=== PATIENT | male | born 1945 | race Caucasian/White ===

== ENCOUNTER 2024-03-06 06:05 | Day surgery (SDC) | payer OTHER ==
[2024-02-22 14:45] VITALS: BP 109/75
[2024-03-06] VITALS (8 sets, daily range): BP systolic 110–153; BP diastolic 57–84
[~2024-03-06] VITALS: Ht 182.9 cm; Wt 98.0 kg
[~2024-03-06 06:05] MED LIST: CEFAZOLIN SODIUM 2 GM/20 ML SYR IV SCH; CRESTOR40 MG NG; DUTASTERIDE0.5 MG PO; FAMOTIDINE20 MG PO; GABAPENTIN 600 MG TAB PO SCH; IBLOOD GLUCOSE TEST STRIP 1 EA TEST VI PRN; INTRA-ARTICULAR ANALGESIC INJECTION XX SCH; LACTATED RINGER'S 1,000 ML IV SCH; LIDOCAINE HCL 1% 5 ML SDV INJ ONE; LIPITOR40 MG PO; NITROGLYCERIN0.4 MG SL; OXYCODONE HCL 5 MG TAB PO SCH; PANTOPRAZOLE SODIUM 40 MG TABEC PO SCH; ROPIVACAINE IN 0.9% SOD CHL/PF 545 ML ELS.PMP.HR IRRIGATION SCH; Ropivacaine HCl 20 MG/10 ML AMP ONE; TRANEXAMIC ACID 2,000 MG in SODIUM CHLORIDE 0.9% 100 ML IV SCH; VENTOLIN HFA18 GM INH; VITAMIN D350 MCG PO; VOLTAREN ARTHRI20 GM TOP; XARELTO10 MG PO; ondansetron HCL 4 MG TAB PO SCH
[2024-03-06] MEDS ORDERED: CLOPIDOGREL75 MG PO (06:32)
[2024-03-06] MEDS ORDERED: ROPIVACAINE IN 0.9% SOD CHL/PF 545 ML ELS.PMP.HR IRRIGATION SCH (07:00)
[2024-03-06] MEDS ORDERED: IBLOOD GLUCOSE TEST STRIP 1 EA TEST VI PRN ×2 (07:00→08:45)
[2024-03-06] MEDS ORDERED: GABAPENTIN 600 MG TAB PO SCH (07:00)
[2024-03-06] MEDS ORDERED: ondansetron HCL 4 MG TAB PO SCH (07:00)
[2024-03-06] MEDS ORDERED: PANTOPRAZOLE SODIUM 40 MG TABEC PO SCH (07:00)
[2024-03-06] MEDS ORDERED: TRANEXAMIC ACID IN NACL,ISO-OS 1,000 MG/100 ML PIGGYBACK IV SCH ×2 (07:00→11:29)
[2024-03-06] MEDS ORDERED: CEFAZOLIN SODIUM 2 GM/20 ML SYR IV SCH ×2 (07:00→16:00)
[2024-03-06] MEDS ORDERED: LIDOCAINE HCL 1% 5 ML SDV INJ ONE (07:00)
[2024-03-06] MEDS ORDERED: INTRA-ARTICULAR ANALGESIC INJECTION XX SCH (07:00)
[2024-03-06] MEDS ORDERED: OXYCODONE HCL 5 MG TAB PO SCH (07:00)
[2024-03-06] MEDS ORDERED: DEXAMETHASONE SOD PHOS 4 MG/ML VIAL ONE ×2 (07:50→08:22)
[2024-03-06] MEDS ORDERED: dexmedeTOMIDine HCl 200 MCG/2 ML VIAL ONE (07:50)
[2024-03-06] MEDS ORDERED: propofoL 200 MG/20 ML VIAL ONE ×2 (07:50→08:22)
[2024-03-06] MEDS ORDERED: LIDOCAINE HCL 2% 5 ML SDV ONE (07:50)
[2024-03-06] MEDS ORDERED: Ropivacaine HCl 0.5% 30 ML VIAL ONE (07:51)
[2024-03-06] MEDS ORDERED: SODIUM CHLORIDE 0.9% 20 ML IV ONE ×2 (07:51→10:07)
[2024-03-06] MEDS ORDERED: KETOROLAC TROMETHAMINE 30 MG/ML VIAL IV PRN (08:30)
[2024-03-06] MEDS ORDERED: OXYCODONE HCL 5 MG TAB PO PRN (08:30)
[2024-03-06] MEDS ORDERED: fentaNYL citrate 50 MCG/ML SDV IV PRN (08:45)
[2024-03-06] MEDS ORDERED: NALOXONE HCL 0.4 MG SYR IV PRN (08:45)
[2024-03-06] MEDS ORDERED: ondansetron HCL 4 MG/2 ML VIAL IV PRN (08:45)
[2024-03-06] MEDS ORDERED: ePHEDrine sulfate 50 MG/ML AMP ONE (08:50)
--- NOTE | 2024-03-06 10:47 | NUR ---
03/06/24 1047 Concepción Zavala 1033 PT TO PACU SLEEPY BUT AROUSABLE DENIES PAIN AND NAUSEA.
--- NOTE | 2024-03-06 11:06 | NUR ---
Pt arrived to room via bed, transferred by PACU RNs. Pt report received from RN Eloisa Oh. Pt is resting supine in bed, cryo cuff on and plugged in. Pt is alert and oriented, denies any pain at this time. Dressing is without noted drainage. Pt sipping on powerade (he does not like plain water). Pt reports sensation to the mid thigh and can wiggle his toes. Oriented pt to room and call light, white board updated. Side rails up x4, call light in reach.
--- NOTE | 2024-03-06 12:01 | NUR ---
PT NOT AVAILABLE FOR VISIT. PROVIDED PRAYER.
[2024-03-06] MEDS ORDERED: ALBUTEROL SULFATE 0.083% 3 ML VIAL INH PRN (13:15)
--- NOTE | 2024-03-06 13:45 | OR ---
[facility] [address] [place], [place] [address] Signed DATE OF OPERATION: 03/06/2024 SURGEON: Tosha Zavala MD PREOPERATIVE DIAGNOSIS: Severe degenerative joint disease, right knee. POSTOPERATIVE DIAGNOSIS: Severe degenerative joint disease, right knee. PROCEDURE PERFORMED: Right total knee arthroplasty with Jeromy. ICING COATER: Bel Tello PA-C. Bel was present and critical for all portions of procedure. ANESTHESIA: Spinal. BLOOD LOSS: 163 mL. IMPLANTS: Ayla Triathlon size 6, 10 mm polyethylene, 35 mm patella. BRIEF HISTORY: Matteo is an 78-year-old gentleman with severe pain in his knee. He had undergone nonoperative treatment without substantial relief. Risks, benefits, and alternatives of surgery were discussed with him and he elected to proceed. DESCRIPTION OF OPERATION: Once consent was obtained, he was taken to the operating room. After adequate anesthesia, he was placed on the operating room table. All downside pressure points were well padded and a hip bump was placed. The right leg was prepped and draped in the standard sterile fashion. The knee was approached through a standard anterior midline incision and taken through the skin and subcutaneous tissue. Skin flaps were developed medially and laterally. A low midvastus arthrotomy was performed. The MCL was elevated as a sleeve around the posteromedial corner. The infrapatellar fat pad was excised. Anterior horns of meniscus were transected and the ACL was transected. The PCL was Electronically Signed By: TOSHA ZAVALA MD 03/06/24 1345 PATIENT NAME: IRISH MEDEIROS OPERATIVE REPORT DATE OF : 41 REPORT #: [id number] PHYSICIAN: TOSHA ZAVALA MD PCP: NO PRIMARY CARE PHYSICIAN REPORT IS CONFIDENTIAL AND NOT TO BE RELEASED WITHOUT AUTHORIZATION [facility] [address] [place], [place] [address] Signed found to be intact. The computer arrays were then placed in the medial femoral condyle and proximal tibia. The leg was then registered with the computer followed by the fine anatomic points of the knee. The varus and valgus testing was undertaken and slight adjustments were made to the components. The robot was then brought in. The 4 straight cuts and 2 angle cuts were made with care taken to protect the patellar tendon and MCL. The bony remnants were removed as were any remaining osteophytes. The posterior osteophytes were removed off the femur, but no release was performed. The meniscal remnants were removed. Trials were then positioned. Knee was taken from 0 to 130 degrees with excellent stability throughout. The patella tracked well. The patella was then cut sized and drilled for a 35 mm patella. Again, the patella tracked well. The distal femoral drill holes were completed and the proximal tibia was finished with keel punch and drill holes. The prosthesis was then obtained and the tibia was impacted until it was seated flush. The polyethylene was snapped into position and the femur was impacted. The knee was extended and loaded. The patella was clamped into position the bone was quite soft and it did not sit stably. We then switched to a cemented patella and mixed the cement and placed it on the bone and the patellar component. It was then held in position until the cement had set. All excess cement was removed. The knee was then taken through range of motion and found again to be stable and well tracked patella. The periarticular soft tissue was injected with 80 mL of ropivacaine and Toradol mixture. The On-Q pain pump was percutaneously placed into the adductor canal from the suprapatellar pouch. The knee was irrigated with one bottle of Surgiphor followed by normal saline. The arthrotomy was then closed using a combination of #2 FiberWire and #2 Stratafix, subcutaneous tissue with 0 Stratafix and the skin with virgil. The wound was dressed with Acticoat-7 dressing, ABD, and Cristopher wrap. He tolerated the procedure well. All sponge, needle, and instrument counts correct. Tosha Zavala MD BA/MODL /[id number] Electronically Signed By: TOSHA ZAVALA MD 03/06/24 1345 PATIENT NAME: IRISH MEDEIROS OPERATIVE REPORT DATE OF : 41 REPORT #: [id number] PHYSICIAN: TOSHA ZAVALA MD PCP: NO PRIMARY CARE PHYSICIAN REPORT IS CONFIDENTIAL AND NOT TO BE RELEASED WITHOUT AUTHORIZATION [facility] [address] [place] [id number] Signed Copies: ~ Electronically Signed By: TOSHA ZAVALA MD 03/06/24 1345 PATIENT NAME: JESS MEDEIROSIFFORD CHRIS MARIEN OPERATIVE REPORT DATE OF : 41 REPORT #: [id number] PHYSICIAN: TOSHA ZAVALA MD PCP: NO PRIMARY CARE PHYSICIAN REPORT IS CONFIDENTIAL AND NOT TO BE RELEASED WITHOUT AUTHORIZATION
--- NOTE | 2024-03-06 13:52 | NUR ---
In with pt for hourly post-op assessment. Pt has sensation to his feet, is able to wiggle his toes and pt advised (and showed) this Rn that he can lift his right leg pretty high off the bed. Pt now states he is having discomfort in his right hip. Encouraged pt to take it easy until the physical therapist comes to help him. Pt requested a urinal at this time and states he would like to attempt to urinate. Cryo cuff on, demetrio hose on, foot pumps on, rolls under heels, warm blanket provided, hob lowered slightly, side rails up x4, call light in reach.
--- NOTE | 2024-03-06 14:30 | NUR ---
Spoke with pt and his DILLacey. Pt lives alone in [place] in a trailer. There is snow there. Pt uses a 4WW walker. He does not want to get a 2WW. He plans on going home with son and DIL for transport. They will not be staying with pt and live an hour away. Pt states he planned well for this admission and has years of freezer meals. Once home, he will just stay there. Pt will have HH PT. He denies any needs. Pt is grimacing at times and does c/o pain. Nurse to room and will medicate pt.Pt denies financial issues.
[2024-03-06] MEDS ORDERED: CLOPIDOGREL BISULFATE 75 MG TAB PO SCH (15:00)
[2024-03-06] MEDS ORDERED: GABAPENTIN 300 MG CAP PO SCH (15:00)
[2024-03-06] MEDS ORDERED: ACETAMINOPHEN 500 MG TAB PO SCH (15:00)
[2024-03-06] MEDS ORDERED: Rivaroxaban 10 MG TAB PO SCH (15:00)
--- NOTE | 2024-03-06 17:50 | NUR ---
medications reconciled using pharmacy records and patient interview
--- NOTE | 2024-03-06 18:57 | NUR ---
After pt was bladder scanned for >556 ml, 2-person assist pt using FWW and WBAT to RL, pt up to toilet to sit to void. Pt states that it normally takes him a long time to void and when he does, he sits there longer because he'll void more when he does. He sat on the toilet for about 10 minutes and used the call light, voided about 200ml in toilet, PVR of >356. Pt back to bed to eat dinner. Will assist him to the toilet after dinner and bladder scan for PVR
--- NOTE | 2024-03-06 20:10 | NUR ---
REPORT RECEIVED FROM ROVERTO PRADHAN. pt RESTING IN THE BED. BOARD UPDATED. CRYO CUFF ON. SCDS ON. CALL LIGHT WITHIN REACH. NO OTHER NEEDS AT THIS TIME.
[2024-03-06] MEDS ORDERED: FINASTERIDE 5 MG TAB PO SCH (21:00)
[2024-03-06] MEDS ORDERED: FAMOTIDINE 20 MG TAB PO SCH (21:00)
[2024-03-06] MEDS ORDERED: SENNOSIDES 1 TAB PO SCH (21:00)
[2024-03-06] MEDS ORDERED: ATORVASTATIN 40 MG TAB PO SCH (21:00)
--- NOTE | 2024-03-06 22:00 | NUR ---
PATIENT VOIDED 200ML SLIGHTLY DARK YELLOW URINE ON THE HAT. BLADDER SCAN DONE AND SHOWED 306ML. PRIMARY RN IS AWARE. PATIENT IS BACK IN BED. FOOT SCD'S AND CRYO CUFF ARE BACK ON.
--- NOTE | 2024-03-06 22:30 | NUR ---
ASSESSMENT AND VITAL SIGNS DONE. pt UP TO THE BR. 1PA WITH FWW. DRESSING CDI. CRYO CUFF FILLED WITH ICE. pt BACK TO BED. CRYO CUFF ON. SCD'S ON. SCHEDULED MEDS ADMINISTERED. pt DENIES ANY OTHER NEEDS AT THIS TIME. pt PEED 200 ML. POST RESIDUAL VOID SCAN OF 306 ML. CALL LIGHT WITHIN. IV ASSESSED, WNL.
[2024-03-07] VITALS (11 sets, daily range): BP systolic 111–132; BP diastolic 68–88
--- NOTE | 2024-03-07 00:20 | NUR ---
pt RESTING IN THE BED. SCHEDULED MEDICATION ADMINISTERED. pt DENIES ANY OTHER NEEDS AT THIS TIME. CALL LIGHT WITHIN REACH.
--- NOTE | 2024-03-07 07:39 | NUR ---
RECEIEVED MORNING REPORT FROM TECHNICAL ANALYST RN. PT LAYING IN BED WITH EYES CLOSED CHEST RISE EQUAL BILAT. PT HAS CALL LIGHT WITHIN REACH.
[2024-03-07] MEDS ORDERED: Rivaroxaban 10 MG TAB PO SCH (08:00)
[2024-03-07] MEDS ORDERED: DICLOFENAC SOD 75 MG TABEC PO SCH (08:00)
--- NOTE | 2024-03-07 08:30 | NUR ---
PT SITTING UP RIGHT IN BED WATCHING TV PT EXPRESSES NO CURRENT NEEDS AT THIS TIME. PT CRYO CUFF, SCD'S in place with call light in reach.
[2024-03-07] MEDS ORDERED: CLOPIDOGREL BISULFATE 75 MG TAB PO SCH (09:00)
[2024-03-07] MEDS ORDERED: cefuroxime axetiL 250 MG TAB PO SCH (09:00)
--- NOTE | 2024-03-07 09:40 | NUR ---
PT SITTING UPRIGHT IN BED. PT STATES "THAT HE IS IN NO PAIN" PT HAS NO CURRENT NEEDS AT THIS TIME. CALL LIGHT WITH IN REACH.
--- NOTE | 2024-03-07 10:38 | NUR ---
PT SITTING UPRIGHT IN BED PT STATES "HE HAS NO CURRENT PAIN AND HE FEELS WELL ENOUGH TO GO HOME" PT WAS ALSO ABOUT TO WORK WITH PHYSICAL THERAPY TO DETERMINE STATUS OF MOBILITY. PT HAS NO CONCERNS AT THIS TIME CALL LIGHT WITHIN REACH.
--- NOTE | 2024-03-07 10:40 | NUR ---
Spoke with pt. he is walking in the grimm. He denies needs. I spoke with Dr. Zavala earlier this am and he would like pt to remain another day due to safety concerns.
--- NOTE | 2024-03-07 11:16 | NUR ---
UR CLINICAL REVIEW: [facility] [place] ENCOUNTER INACTIVE. [facility] EXTENDED STAY 03/06/24 @ 1115 ORDER [facility] FAXED TO [place] FOR REVIEW DISCHARGE TO HOME WHEN STABLE 03/09/24
--- NOTE | 2024-03-07 11:45 | NUR ---
PT STATED " HE DOES FEEL SOME SLIGHT PAIN WHEN AMBULATING BUT REFUSES TO TAKE ORAL PAIN MEDICATIONS" PT SAYS EXPRESSES NO OTHER NEEDS AT THIS TIME. CALL LIGHT WITHIN REACH.
--- NOTE | 2024-03-07 12:56 | NUR ---
PT AMBULATED TO RESTROOM WITH HELP FROM FOUNDER AND CEO. PT TOLERATED WELL USING FWW AND 1 PERSON ASSIST. PT CURRENTLY LAYING IN BED WITH CRYO CUFF ATTACHED AND SCD'S ON. PT EXPRESSES NO NEEDS AT THIS TIME CALL LIGHT WITHIN REACH.
--- NOTE | 2024-03-07 13:16 | NUR ---
DR ALONZO CALLED TO CLARIFY ON Q PUMP SETTING. DR ALONZO CONFIRMED THAT HE WANTS THE ON Q SET AT 4 ML/HR IT IS CURRENTLY RUNNING.
--- NOTE | 2024-03-07 13:51 | NUR ---
PT NOT AVAILABLE FOR VISIT. PROVIDED PRAYER.
--- NOTE | 2024-03-07 14:12 | NUR ---
PT SITTING IN BED WITH CRYO CUFF APPLIED AND SCD'S PLACED. PT EXPRESSES NO PAIN AT THIS TIME AND NO OTHER CONCERNS. PT CALLL LIGHT WITHIN REACH.
--- NOTE | 2024-03-07 16:21 | NUR ---
PT RESTING IN BED READING HIS BOOOK. MEDS GIVEN (CONSULTED WITH [facility] PHARMACIST REGARDING TIMING OF BLOOD THINNNING MEDICATIONS) NO REQUESTS AT THIS TIME. CALL LIGHT WITHIN REACH.
--- NOTE | 2024-03-07 16:40 | NUR ---
PT SITTING IN BED WITH EYES CLOSED. PT CHEST RISE EQIAL BILAT PT EXPRESSES NO NEEDS AT THIS TIME. CALL LIGHT WITHIN REACH.
--- NOTE | 2024-03-07 17:50 | NUR ---
PT ASSISTED INTO THE REST ROOM VIA 1PA FWW. PT USES CALL LIGHT APPROPRIATLY. PT CRYOCUFF BOX FILLED WITH ICE. PT SHAVED AND BRUSHED TEETH PT ASSISTED BACK INTO BED AND IS EATING DINNER SITTING UPRIGHT IN BED. PT HAS NO CONCERNS AT THIS TIME CALL LIGHT WITHIN REACH.
--- NOTE | 2024-03-07 18:45 | NUR ---
PT SITTING IN BED WATCHING TV PT EXPRESSES NO NEEDS AT THIS TIME CRYOCUFF ON STILL WITH ICE IN BOX. PT HAS CALL LIGHT WITH IN REACH
--- NOTE | 2024-03-07 19:38 | NUR ---
REPORT RECEIVED FROM BARBARA PRADHAN. pt RESTING IN THE BED. BOARD UPDATED. pt DENIES ANY OTHER NEEDS AT THIS TIME. CALL LIGHT WITHIN REACH.
--- NOTE | 2024-03-07 21:40 | NUR ---
ASSESSMENT AND VITAL SIGNS DONE. DRESSING CDI. SCDS ON. CRYO CUFF FILLED WITH ICE. SCHEDULED MEDS ADMINISTERED. pt DENIES ANY OTHER NEEDS AT THIS TIME. CALL LIGHT WITHIN REACH.
--- NOTE | 2024-03-08 00:05 | NUR ---
pt CALLED TO USE THE BR. SBA WITH FWW TO THE BR. pt BACK TO BED. CRYO FILLED WITH ICE. SCDS ON. pt DENIES ANY OTHER NEEDS AT THIS TIME. CALL LIGHT WITHIN REACH.
--- NOTE | 2024-03-08 02:21 | NUR ---
pt RESTING IN THE BED WITH EYES CLOSED. RR EVEN AND UNLABORED. CALL LIGHT WITHIN REACH.
[2024-03-08 04:18] VITALS: BP 126/70
--- NOTE | 2024-03-08 06:35 | NUR ---
pt C/O 08/29 PAIN. PRN PAIN MEDS ADMINISTERED. pt DENIES ANY OTHER NEEDS AT THIS TIME. CALL LIGHT WITHIN REACH.
--- NOTE | 2024-03-08 07:27 | NUR ---
ROSEANNA REPORT RECIEVED FROM CAROLYNN GONZALEZ. RN REPORTED PT EXPERIENCED SOME PAIN EARLY THIS MORNING AROUND 0630 AND WAS GIVEN PRN OXY (SEE EMAR) PT CURRENTLY SHOWING NO SIGNS OF DISCOMFORT. PT HAS NO CURRENT NEEDS AT THIS TIME CALL LIGHT WITHIN REACH.
--- NOTE | 2024-03-08 08:15 | NUR ---
ROSINA COTO IN TO SEE PT, ASSESS, AND DISCUSS POC. ALSO GAVE PT A BOLUS OF ROPIVICAINE 0.5% 15ML. ON Q PUMP SET AT 4ML/HR. PT'S CALL LIGHT WITHIN REACH. NO REQUESTS AT THIS TIME.
--- NOTE | 2024-03-08 08:29 | NUR ---
PATIENT IN BED AT THIS TIME. GASOLINE TRUCK CRANE OPERATOR WENT INTO PATIENTS ROOM FOR HOURLY ROUNDS. CALL LIGHT WITHIN REACH, NO FURTHER NEEDS AT THIS TIME.
--- NOTE | 2024-03-08 10:26 | NUR ---
PATIENT IN BED AT THIS TIME. SOFTWARE TEST ENGINEER CHARTED VITALS AND I&O'S. CALL LIGHT WITHIN REACH, NO FURTHER NEEDS AT THIS TIME.
== END 2024-03-08 10:32 | disposition home or self-care (01) ==
LOC: DS 06:05 → MS 06:05 → DS 07:00 → MS 11:05 → DS 03-08 10:32
PROVIDERS: ATTEND Specialist
PROC: 0SRC0JZ Replacement of Right Knee Joint with Synthetic Substitute, Open Approach (ICD-10-PCS; principal; 2024-03-06 09:15)
DX: M17.11 Unilateral primary osteoarthritis, right knee (principal)
CPT/HCPCS: 01400; 64447; 64450; 73560; 76942; 96374; 97110; 97161; 97530; A9270; C1713; C1776; J0690; J1100; J2003; J2704; J2795; J7121; J7999

== ENCOUNTER 2024-03-23 15:18 | Emergency (ER) | payer OTHER ==
[~2024-03-23] VITALS: Ht 182.9 cm; Wt 98.9 kg
[~2024-03-23 15:18] MED LIST changes: -CEFAZOLIN SODIUM 2 GM/20 ML SYR IV SCH; +CLOPIDOGREL75 MG PO; -GABAPENTIN 600 MG TAB PO SCH; -IBLOOD GLUCOSE TEST STRIP 1 EA TEST VI PRN; -INTRA-ARTICULAR ANALGESIC INJECTION XX SCH; -LACTATED RINGER'S 1,000 ML IV SCH; -LIDOCAINE HCL 1% 5 ML SDV INJ ONE; -OXYCODONE HCL 5 MG TAB PO SCH; -PANTOPRAZOLE SODIUM 40 MG TABEC PO SCH; -ROPIVACAINE IN 0.9% SOD CHL/PF 545 ML ELS.PMP.HR IRRIGATION SCH; -Ropivacaine HCl 20 MG/10 ML AMP ONE; -TRANEXAMIC ACID 2,000 MG in SODIUM CHLORIDE 0.9% 100 ML IV SCH; -ondansetron HCL 4 MG TAB PO SCH
[2024-03-23 16:06] LABS: BASOPHILS 1.2 % (0-2); EOSINOPHILS 4.4 % (0-6); HEMATOCRIT 36.1 % (35.0-50.0); HEMOGLOBIN 11.9 g/dL (12.0-18.0); LYMPHOCYTES 17.9 % (24-44); MCH 27.6 (27-36); MCV 83.6 fl (81-99); MONOCYTES 8.3 % (0-12); NEUTROPHILS 68.2 % (39-80); PLATELET COUNT 463 K/uL (140-440); RBC 4.31 M/ul (4.3-5.7); RDW 15.1 (10.5-15.0)
[2024-03-23 16:21] LABS: PARTIAL THROMBOPLASTIN TIME 31.6 Sec (22.9-41.3)
[2024-03-23 16:22] LABS: INR 1.66 (0.80-1.30); PROTIME 19.6 Sec (11.2-14.2)
[2024-03-23 16:34] LABS: ALBUMIN 3.2 g/dL (3.4-5.0); ALBUMIN/GLOBULIN RATIO 0.76 (1.1-2.4); ANION GAP 13.8 (7-21); BILIRUBIN, TOTAL 0.7 ng/dL (0.2-1.0); BUN/CREATININE RATIO 13.69 (6.0-28.6); CREATININE, SERUM 1.46 mg/dL (0.70-1.30); MAGNESIUM 1.8 mg/dL (1.8-2.4); POTASSIUM 3.8 mmol/L (3.5-5.1); PROTEIN, TOTAL 7.4 g/dL (6.4-8.2)
[2024-03-23] MEDS ORDERED: PERCOCET 5-3251 EACH PO (18:10)
[2024-03-23 18:19] VITALS: BP 152/71
--- NOTE | 2024-03-24 11:52 | EKG ---
[facility] [address] [facility] [place] [address] Signed Sinus rhythm with 1st degree AV block Low voltage QRS Borderline ECG Confirmed by Drew Goodrich DO ([id number]) on 03/24/2024 11:52:38 AM Electronically Signed By: DREW GOODRICH DO 03/24/24 1152 PATIENT NAME: IRISH MEDEIROS Electrocardiogram DATE OF : 41 PHYSICIAN: DREW GOODRICH DO REPORT #: [id number] REPORT IS CONFIDENTIAL AND NOT TO BE RELEASED WITHOUT AUTHORIZATION
== END 2024-03-23 18:19 | disposition home or self-care (01) ==
LOC: ED 15:18
PROVIDERS: Emergency Medicine
DX: R06.02 Shortness of breath (principal); K80.20 Calculus of gallbladder without cholecystitis without obstruction; I25.10 Atherosclerotic heart disease of native coronary artery without angina pectoris; Z96.651 Presence of right artificial knee joint; Z79.899 Other long term (current) drug therapy; Z79.02 Long term (current) use of antithrombotics/antiplatelets; Z95.5 Presence of coronary angioplasty implant and graft; Z79.01 Long term (current) use of anticoagulants
CPT/HCPCS: 36415; 71045; 71260; 80053; 83735; 83880; 84484; 85025; 85610; 85730; 87502; 93005; 93010; 99285-25; Q9967; U0002